=== PATIENT | female | born 2000 | race Two or more races ===

== ENCOUNTER 2023-06-22 20:07 | Emergency (ER) | payer OTHER ==
[~2023-06-22] VITALS: Ht 149.9 cm; Wt 68.0 kg
[2023-06-22] MEDS ORDERED: GUAIFENESIN 200 MG/10 ML BLIST.PACK PO STA (21:43)
[2023-06-22] MEDS ORDERED: KETOROLAC TROMETHAMINE 30 MG VIAL IM STA (21:43)
== END 2023-06-22 22:27 | disposition home or self-care (01) ==
LOC: ER 20:08
DX: J06.9 Acute upper respiratory infection, unspecified (principal); Z20.822 Contact with and (suspected) exposure to COVID-19